=== PATIENT | male | born 1960 | race Caucasian/White ===

== ENCOUNTER 2017-04-23 06:21 | Emergency (ER) | payer BC, OTHER ==
[2017-04-23] MEDS ORDERED: NORMAL SALINE 1,000 ML IV ONE (06:55)
--- NOTE | 2017-04-23 06:57 | ERNOTE ---
Abdominal HPI - General Chief Complaint: Abdominal Pain Time Seen by Provider: 04/23/17 06:49 Source: patient Exam Limitations: no limitations - Immun/Allergies/Home Medications Immunizatons: IMMUNIZATION HX Immunizations Up to Date Yes History of Influenza Vaccine No Hx Pneumococcal Vaccination No Allergies/Adverse Reactions: Allergies No Known Allergies Allergy (Verified 04/23/17 07:05) Home Medications: HOME MEDICATIONS NK [No Home Medication] 04/23/17 [Last Taken Unknown] - History of Present Illness Narrative: Pt states that yesterday around noon he began to have right sided abdominal pain. It has waxed and waned throughout the day but progressively gotten worse. He states it kept him up all night. Timing: getting worse Quality: moderate, burning Activities at Onset: none Modifying Factors - (Improves): Present: lying down Modifying Factors - (Worsens): Present: movement Associated Symptoms: Absent: nausea, vomiting Prior Abdominal Problems: Present: none Review of Systems - Review of Systems Constitutional: Absent: recent illness, fever, chills EYE: Present: no symptoms reported ENT: Present: no symptoms reported Respiratory: Absent: shortness of breath Cardiology: Absent: chest pain Gastrointestinal/Abdominal: Present: See HPI. Absent: nausea, vomiting, diarrhea, constipation Genitourinary: Absent: frequency, pain, dysuria Musculoskeletal: Absent: back pain Skin: Absent: rash Neurological: Present: no symptoms reported Endocrine: Absent: excessive sweating, flushing Hematologic/Lymphatic: Present: no symptoms reported Psych: Present: no symptoms reported - Patient's Past Medical History Patient History - Medical: No pertinent hx Patient History - Cardiac/Respiratory: No pertinent hx Patient History - Cancer: No Hx of Cancer Patient History - Surgical Procedures: Other Patient History - Other: None - Social History Living Situations: home Abuse History: No History of abuse Psych History: No pertinent hx Smoking Status: Never smoker Alcohol Use: occasionally Drug Use: none - Immunizations Immunizations Up to Date: Yes Hx Pneumococcal Vaccination: No History of Influenza Vaccine: No Physical Exam - Physical Exam General Appearance: Present: wd/wn, alert, no apparent distress Head Exam: Present: normal inspection, no evidence of injury Eye Exam: Normal inspection: bilateral Neck: Present: normal inspection, full range of motion Respiratory: Present: no respiratory distress, no accessory muscle use Gastrointestinal/Abdominal: Present: normal bowel sounds, nondistended, soft, tenderness - right mid abdomen. Absent: guarding, rebound Back Exam: Present: normal inspection, no CVA tenderness Neurological Exam: Present: alert, oriented, normal mood/affect, no motor/ sensory deficits Skin Exam: Present: normal color, warm/dry Lymphatic Exam: Present: no adenopathy ED Progress - Vital Signs Vital Signs: Vital Signs 04/23/17 06:26 Temperature 37.1 C Pulse Rate 86 Respiratory 16 Rate Blood Pressure 171/111 O2 Sat by Pulse 94 Oximetry - X-Ray X-Ray #1 X-Ray: abdomen Interpretation: Interp. by al X-ray Comments: moderate stool retention no evidence for obstruction - Progress/Reassessment Chief Complaint: Abdominal Pain Progress:: Unchanged Progress Note-Subjective: 04/23/17 07:43 continues to have pain but declines offer for medication at this time 04/23/17 07:43 - Transfer of Care Physician Sign Out: Reid Christine Receiving Physician: Neha Ni Pending Results: CT/MRI results Expected Disposition: Discharge Departure Clinical Impression: Abdominal pain Qualifiers: Abdominal location: right lower quadrant Qualified Code(s): R10.31 - Right lower quadrant pain - Departure Disposition: Home Follow Up Needed Condition: Good
[2017-04-23 07:15] LABS: Hematocrit 46.5 % (42.0-52.0); Hemoglobin 15.6 gm/dL (13.5-18.0); Mean Cell Volume 88.4 fl (78-100); Mean Corpuscular Hemoglobin 29.7 pg (27-31); Mean Corpuscular Hgb Conc 33.5 g/dl (32-36); Mean Platelet Volume 8.9 fl (6.0-9.5); Neutrophil # 8.5 K/mm3 (1.3-6.0); Neutrophil % 74.9 % (42-75.0); Platelet Count 300 K/mm3 (150-450); Red Blood Count 5.26 M/mm3 (4.7-6.0); Red Cell Distribution Width 12.9 % (11.5-14.0); White Blood Count 11.3 K/mm3 (4.0-10.5)
[2017-04-23 07:38] LABS: Urine Bilirubin Negative (NEGATIVE); Urine Blood Negative /ul (NEGATIVE); Urine Ketone Negative (NEGATIVE); Urine Nitrite Negative (NEGATIVE); Urine Protein Negative (NEGATIVE); Urine Specific Gravity 1.015 SP.GR. (1.005-1.030); Urine Urobilinogen Normal (NORMAL)
[2017-04-23 07:46] LABS: Urine Amorphous Sediment Few - 1+ (NONE-FEW); Urine Appearance Slightly Cloudy; Urine Bacteria TRACE; Urine Color Yellow; Urine Mucus TRACE; Urine RBC None Seen /hpf (0-5); Urine Sperm TRACE; Urine WBC None Seen /hpf (0-5)
[2017-04-23 07:47] LABS: Albumin * 3.9 gm/dl (3.4-5.0); Anion Gap 11.2 mmol/L (6.8-13.8); BUN/Creatinine Ratio 10.3 (9.0-21.6); Bilirubin, Total 0.7 mg/dL (0.0-1.1); Ca. Corrected For Albumin 9.3 mg/dL (8.4-10.2); Calcium * 9.5 mg/dL (7.9-10.9); Carbon Dioxide 27.6 mmol/L (24-32.6); Potassium 3.8 mmol/L (3.4-4.6); Total Protein 8.3 gm/dL (6.2-8.2)
[2017-04-23] MEDS ORDERED: DIATRIZOATE MEGLUMINE, SODIUM 30 ML BTL ONE (07:57)
[2017-04-23] MEDS ORDERED: DIATRIZOATE MEGLUMINE, SODIUM 30 ML BTL PO ONE (08:00)
[2017-04-23 10:03] VITALS: BP 155/89
== END 2017-04-23 10:58 | disposition home or self-care (01) ==
LOC: ER 06:21
DX: K57.92 Diverticulitis of intestine, part unspecified, without perforation or abscess without bleeding (principal); R10.31 Right lower quadrant pain